=== PATIENT | male | born 1960 | race Two or more races ===

== ENCOUNTER 2017-07-24 06:07 | Day surgery (SDC) | payer OTHER ==
[~2017-07-24] VITALS: Ht 172.7 cm; Wt 95.3 kg
[2017-07-24] MEDS ORDERED: ceFAZolin 1GM/100ML 100 ML IV ONE (07:02)
[2017-07-24] MEDS ORDERED: NEOSTIGMINE 1 MG/ML INJ (10mg/10ML VIAL) IV ONE (07:20)
[2017-07-24] MEDS ORDERED: GLYCOPYRROLATE 0.2 MG/ML 1ML VIAL IV ONE (07:20)
[2017-07-24] MEDS ORDERED: ROCURONIUM 10MG/ML 10ML VIAL IV ONE (07:20)
[2017-07-24 07:21] LABS: Basophils # (auto) 0 uL; Basophils % (auto) 0.5 % (0.0-2.0); Eosinophils # (auto) 0.1 uL; Eosinophils % (auto) 2.3 % (0.0-7.0); Hematocrit 41.3 % (41.0-53.0); Hemoglobin 14.2 g/dL (13.5-17.5); Lymphocytes # (auto) 1.7 uL; Lymphocytes % (auto) 27.7 % (10.0-50.0); Mean Corpuscular Hemoglobin 31.5 pg (28.0-32.0); Mean Corpuscular Hgb Conc. 34.4 g/dL (32.0-36.0); Mean Corpuscular Volume 91.6 fL (80.0-100.0); Monocytes # (auto) 0.4 uL; Monocytes % (auto) 7.1 % (0.0-12.0); Neutrophils # (auto) 3.9 uL; Neutrophils % (auto) 62.4 % (37.0-80.0); Nucleated Red Blood Cells % 0.1 %; Platelet Count (auto) 179 10^3/uL (140-450); Red Blood Cells 4.51 10^6/uL (4.5-5.90); Red Cell Distribution Width 13.8 % (11.8-14.3); White Blood Cell 6.2 10^3/uL (4.4-10.8)
[2017-07-24] MEDS ORDERED: fentaNYL CITRATE 100 MCG/2 ML VL ONE ×2 (07:24→07:56)
[2017-07-24] MEDS ORDERED: MIDAZOLAM HCL 1MG/1ML-2 ML VIAL ONE (07:24)
[2017-07-24] MEDS ORDERED: PROPOFOL 10 MG/ML 20 ML IV ONE (07:26)
[2017-07-24 07:28] LABS: INR 0.93 (0.9-1.15); Partial Thromboplastin Time 27.8 sec (23.78-33.04)
[2017-07-24 07:29] LABS: BUN/Creatinine Ratio 11.5; Calcium 9.1 mg/dL (8.5-10.1); Potassium 3.9 mmol/L (3.5-5.1)
[2017-07-24] MEDS ORDERED: BELLADONNA ALKAL/OPIUM (16.2/30MG) RECT SUPP PR ONE (09:00)
[2017-07-24] MEDS ORDERED: ONDANSETRON HCL 4 MG/2 ML VIAL IV ONE (09:15)
[2017-07-24] MEDS ORDERED: hydrALAZINE HCL 20 MG/ML VL IV PRN (09:15)
[2017-07-24] MEDS ORDERED: ePHEDrine SULFATE 50 MG/ML AMP IV PRN (09:15)
[2017-07-24] MEDS: MORPHINE SULFATE 8mg/ml INJ SDV IV PRN ×2 (09:25→09:40)
[2017-07-24 10:05] VITALS: BP 144/84
== END 2017-07-24 10:25 | disposition home or self-care (01) ==
LOC: SUR 06:07
PROVIDERS: ATTEND Urology
DX: N40.1 Benign prostatic hyperplasia with lower urinary tract symptoms (principal); N41.1 Chronic prostatitis; N39.0 Urinary tract infection, site not specified; F10.99 Alcohol use, unspecified with unspecified alcohol-induced disorder; E66.9 Obesity, unspecified; Z68.31 Body mass index [BMI] 31.0-31.9, adult; Z79.899 Other long term (current) drug therapy
CPT/HCPCS: 36415; 52601; 71045; 80048; 85025; 85610; 85730; J0690; J2250; J2270; J2405; J2704; J3010; 93005